=== PATIENT | male | born 1985 | race Caucasian/White ===

== ENCOUNTER 2017-12-14 16:55 | Emergency (ER) | payer OTHER ==
[2017-12-14 17:06] VITALS: RESP 18
--- NOTE | 2017-12-14 17:33 | ED ---
General Adult HPI - General Chief complaint: Recheck/Abnormal Lab/Rx Stated complaint: Rectal Pain Time Seen by Provider: 12/14/17 17:05 Source: patient, RN notes reviewed Mode of arrival: ambulatory Limitations: no limitations - History of Present Illness Initial comments: This is a 32-year-old male presents emergency Department complaining of a three- day history of perirectal pain. Patient states it is becoming progressively larger as well. Patient states it is. getting progressively worse and more tender in that area. Patient states he feels swelling around the anus. Patient denies any fevers patient denies any abdominal pain. Patient denies any rectal bleeding. Patient denies any anal sex. Patient states he has no history of hemorrhoids. - Related Data Previous Rx's Medication Instructions Recorded Ciprofloxacin HCl [Cipro] 500 mg PO Q12HR #20 tablet 12/14/17 Hydrocodone/Acetaminophen [[place] 1 each PO Q4HR PRN #20 tab 12/14/17 5-325] Ibuprofen [Motrin] 600 mg PO Q6HR PRN #20 tab 12/14/17 metroNIDAZOLE [Flagyl] 500 mg PO QID #40 tab 12/14/17 Allergies Allergy/AdvReac Type Severity Reaction Status Date / Time sulfamethoxazole Allergy Rash/Hives Verified 12/14/17 17:03 [From Bactrim] trimethoprim [From Bactrim] Allergy Rash/Hives Verified 12/14/17 17:03 venlafaxine HCl Allergy Unknown Verified 12/14/17 17:03 [From Effexor] Review of Systems ROS Statement: Those systems with pertinent positive or pertinent negative responses have been documented in the HPI. ROS Other: All systems not noted in ROS Statement are negative. Past Medical History Past Medical History: No Reported History Additional Past Medical History / Comment(s): PTSD, Agoraphobia with panic disorder, coping issues, heroin abuse History of Any Multi-Drug Resistant Organisms: MRSA Date of last positivie culture/infection: 2006 MDRO Source:: neck Past Surgical History: Appendectomy, Orthopedic Surgery Additional Past Surgical History / Comment(s): right foot Past Psychological History: Anxiety, Panic Disorder, PTSD Smoking Status: Current every day smoker Past Alcohol Use History: Rare Past Drug Use History: Heroin General Exam - General Exam Comments Initial Comments: GENERAL: Patient is well-developed and well-nourished. Patient is nontoxic and well- hydrated and is in moderate distress. ENT: Neck is soft and supple. No significant lymphadenopathy is noted. Oropharynx is clear. Moist mucous membranes. Neck has full range of motion without eliciting any pain. EYES: The sclera were anicteric and conjunctiva were pink and moist. Extraocular movements were intact and pupils were equal round and reactive to light. Eyelids were unremarkable. PULMONARY: Unlabored respirations. Good breath sounds bilaterally. No audible rales rhonchi or wheezing was noted. CARDIOVASCULAR: There is a regular rate and rhythm without any murmurs gallops or rubs. ABDOMEN: Soft and nontender with normal bowel sounds. No palpable organomegaly was noted. There is no palpable pulsatile mass. SKIN: Skin is clear with no lesions or rashes and otherwise unremarkable. RECTAL: On rectal exam patient has some swelling at the 7 o'clock position it appeared to be a small abscess. There was no area of drainage and there was no obvious area of fluctuance. NEUROLOGIC: Patient is alert and oriented x3. Cranial nerves II through XII are grossly intact. Motor and sensory are also intact. Normal speech, volume and content. Symmetrical smile. MUSCULOSKELETAL: Normal extremities with adequate strength and full range of motion. Limitations: no limitations Course Vital Signs 12/14/17 12/14/17 17:03 18:17 Temperature 98.2 F 97.9 F Pulse Rate 104 H 106 H Respiratory 18 18 Rate Blood Pressure 128/66 107/63 O2 Sat by Pulse 100 99 Oximetry Medical Decision Making - Medical Decision Making I spoke with Dr. Cardenas about the case Dr. Cardenas he wanted to see the patient in his office tomorrow 1:00 he also wants the patient be an antibiotic pain medicine and have him soak it 3 times a day until he follows up. Disposition Clinical Impression: Abscess of anal and rectal regions Disposition: HOME SELF-CARE Instructions: Abscess (ED) Prescriptions: Ciprofloxacin HCl [Cipro] 500 mg PO Q12HR #20 tablet Hydrocodone/Acetaminophen [[place] 5-325] 1 each PO Q4HR PRN #20 tab PRN Reason: Pain Ibuprofen [Motrin] 600 mg PO Q6HR PRN #20 tab PRN Reason: For pain metroNIDAZOLE [Flagyl] 500 mg PO QID #40 tab Referrals: Davy Cardenas MD [STAFF PHYSICIAN] - (Follow-up with Dr. Cardenas at 1 PM tomorrow) Time of Disposition: 17:41
[2017-12-14] MEDS ORDERED: MORPHINE SULFATE 4 MG/ML SYRINGE IM STA (17:44)
[2017-12-14] MEDS ORDERED: metroNIDAZOLE 500 MG TAB PO STA (17:45)
[2017-12-14] MEDS ORDERED: CIPROFLOXACIN HCL 500 MG TAB PO STA (17:45)
[2017-12-14] MEDS ORDERED: KETOROLAC 60 MG/2 ML VIAL IM STA (17:45)
[2017-12-14 18:18] VITALS: BP 107/63; PULSE 106; TEMP 97.9
== END 2017-12-14 18:17 ==
LOC: EC 16:55
DX: K61.2 Anorectal abscess (principal); F17.200 Nicotine dependence, unspecified, uncomplicated; Z86.14 Personal history of Methicillin resistant Staphylococcus aureus infection; Z88.1 Allergy status to other antibiotic agents; Z88.2 Allergy status to sulfonamides
CPT/HCPCS: 99284; 96372 ×2; J2270; J1885

== ENCOUNTER 2018-05-22 09:51 | Emergency (ER) | payer OTHER ==
[2018-05-22 10:36] VITALS: BP 119/57; PULSE 92; RESP 16; TEMP 97.9
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
--- NOTE | 2018-05-22 11:41 | CT ---
EXAMINATION TYPE: CT brain oneal guerra con DATE OF EXAM: 05/22/2018 COMPARISON: NONE HISTORY: pain CT DLP: 1369 mGycm Automated exposure control for dose reduction was used. TECHNIQUE: CT scan of the head and cervical spine are performed without contrast. FINDINGS: BRAIN: Central structures are midline. There is no evidence of hydrocephalus. No acute focal lesion, mass effect or midline shift is seen. I do not see evidence of intracranial blood. Visualized portions of the paranasal sinuses and mastoids are clear. The bony calvarium is intact. IMPRESSION: NORMAL CT SCAN OF THE BRAIN. CERVICAL SPINE: There is mild emphysematous changes within the lungs. Prevertebral soft tissues are normal. Vertebral body height and alignment are maintained. Atlantoaxial relationships are normal. No fractur es are seen. There is no significant degenerative change. No discal protrusions are seen. IMPRESSION: 1. NO ACUTE OSSEOUS LESION. 2. EMPHYSEMATOUS CHANGE WITHIN THE LUNGS.
== END 2018-05-22 12:25 | disposition home or self-care (01) ==
LOC: EC 09:51 → SUPCPDRO 09:51 → EC 12:25
DX: M54.2 Cervicalgia (principal); M54.9 Dorsalgia, unspecified; F17.200 Nicotine dependence, unspecified, uncomplicated; Z86.14 Personal history of Methicillin resistant Staphylococcus aureus infection; Z98.890 Other specified postprocedural states; Z88.1 Allergy status to other antibiotic agents; Z88.2 Allergy status to sulfonamides; Z88.8 Allergy status to other drugs, medicaments and biological substances; V43.52XA Car driver injured in collision with other type car in traffic accident, initial encounter
CPT/HCPCS: 70450; 72125; 99284

== ENCOUNTER 2018-05-24 12:47 | Emergency (ER) | payer OTHER ==
[2018-05-24 12:58] VITALS: RESP 18
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
[2018-05-24 13:59] VITALS: BP 116/64; PULSE 93; TEMP 98.5
== END 2018-05-24 13:57 | disposition home or self-care (01) ==
LOC: EC 12:47
DX: F41.9 Anxiety disorder, unspecified (principal); F17.200 Nicotine dependence, unspecified, uncomplicated; Z86.14 Personal history of Methicillin resistant Staphylococcus aureus infection; Z79.891 Long term (current) use of opiate analgesic; Z88.2 Allergy status to sulfonamides; Z88.8 Allergy status to other drugs, medicaments and biological substances
CPT/HCPCS: 93005; 99284

== ENCOUNTER 2021-10-30 18:26 | Emergency (ER) | payer BC, OTHER ==
[2021-10-30 19:44] VITALS: BP 112/71; PULSE 76; TEMP 97.4
--- NOTE | 2021-10-30 20:12 | XR ---
EXAMINATION TYPE: XR chest 1V portable DATE OF EXAM: 10/30/2021 COMPARISON: 07/29/2016 HISTORY: Shortness of breath and cough TECHNIQUE: Single frontal view of the chest is obtained. FINDINGS: There is no focal air space opacity, pleural effusion, or pneumothorax seen. The cardiac silhouette size is within normal limits. The osseous structures are intact. IMPRESSION: No acute process.
--- NOTE | 2021-10-30 21:56 | ED ---
URI HPI - General Chief Complaint: Upper Respiratory Infection Stated Complaint: covid symptoms Time Seen by Provider: 10/30/21 21:55 Source: patient, RN notes reviewed, old records reviewed Mode of arrival: ambulatory Limitations: no limitations - History of Present Illness Initial Comments: This is a 36-year-old male to the ER today for evaluation patient since a for evaluation of possible coronavirus has already had and been diagnosed had coronavirus with feels like this may be recurrence. Just feeling bodyaches pains otherwise not feeling well complaining of headache as well. No fevers, no trauma, no other complaints. Patient is no medical history currently takes no medications MD Complaint: cough -: days(s) Severity: mild Severity scale (1-10): 1 Quality: aching Consistency: intermittent Improves With: nothing Worsens With: nothing Context: sick contacts, recent travel Associated Symptoms: chills, myalgias, headache Treatments Prior to Arrival: none - Related Data Home Medications Medication Instructions Recorded Confirmed ALPRAZolam [Xanax] 1 mg PO DIRECTED PRN 05/24/18 05/24/18 Methadone Unknown Dose 95 mg PO DAILY 05/24/18 05/24/18 Allergies Allergy/AdvReac Type Severity Reaction Status Date / Time sulfamethoxazole Allergy Rash/Hives Verified 10/30/21 19:44 [From Bactrim] trimethoprim [From Bactrim] Allergy Rash/Hives Verified 10/30/21 19:44 venlafaxine HCl Allergy Unknown Verified 10/30/21 19:44 [From Effexor] Review of Systems ROS Statement: Those systems with pertinent positive or pertinent negative responses have been documented in the HPI. ROS Other: All systems not noted in ROS Statement are negative. Past Medical History Past Medical History: No Reported History Additional Past Medical History / Comment(s): PTSD, Agoraphobia with panic disorder, coping issues, heroin abuse History of Any Multi-Drug Resistant Organisms: MRSA Date of last positivie culture/infection: 2006 MDRO Source:: neck Past Surgical History: Appendectomy, Orthopedic Surgery Additional Past Surgical History / Comment(s): right foot Past Psychological History: Anxiety, Panic Disorder, PTSD, Schizophrenia Smoking Status: Never smoker Past Alcohol Use History: None Reported Past Drug Use History: Heroin, Methamphetamine General Exam Limitations: no limitations General appearance: alert, in no apparent distress Head exam: Present: atraumatic, normocephalic, normal inspection Eye exam: Present: normal appearance, PERRL, EOMI. Absent: scleral icterus, conjunctival injection, periorbital swelling ENT exam: Present: normal exam, mucous membranes moist Neck exam: Present: normal inspection. Absent: tenderness, meningismus, lymphadenopathy Respiratory exam: Present: normal lung sounds bilaterally. Absent: respiratory distress, wheezes, rales, rhonchi, stridor Cardiovascular Exam: Present: regular rate, normal rhythm, normal heart sounds. Absent: systolic murmur, diastolic murmur, rubs, gallop, clicks GI/Abdominal exam: Present: soft, normal bowel sounds. Absent: distended, tenderness, guarding, rebound, rigid Extremities exam: Present: normal inspection, full ROM, normal capillary refill. Absent: tenderness, pedal edema, joint swelling, calf tenderness Back exam: Present: normal inspection Neurological exam: Present: alert, oriented X3, CN II-XII intact Psychiatric exam: Present: normal affect, normal mood Skin exam: Present: warm, dry, intact, normal color. Absent: rash Course Vital Signs 10/30/21 10/30/21 19:39 22:10 Temperature 97.4 F L Pulse Rate 76 Respiratory 24 18 Rate Blood Pressure 112/71 O2 Sat by Pulse 100 Oximetry - Reevaluation(s) Reevaluation #1: 10/31/21 03:03 Medical record is reviewed Reevaluation #2: 10/31/21 03:03 Symptoms are improved including headache Reevaluation #3: 10/31/21 03:03 Patient informed of results and questions Is answered Medical Decision Making - Medical Decision Making 36 male for coronavirus testing. Patient is negative varus here in the ER and can be discharged home - Lab Data Lab Results 10/30/21 Range/Units 19:47 Coronavirus (PCR) Not Detected (Not Detectd) - Radiology Data Radiology results: report reviewed (Chest x-rays negative for acute disease), image reviewed Disposition Clinical Impression: Acute upper respiratory infection, Headache Disposition: HOME SELF-CARE Condition: Good Instructions (If sedation given, give patient instructions): Upper Respiratory Infection (ED), Acute Headache (ED) Is patient prescribed a controlled substance at d/c from ED?: No Referrals: Garcia Hummel MD [Primary Care Provider] - 1-2 days
[2021-10-30] MEDS ORDERED: ETODOLAC 400 MG TAB PO STA (21:59)
[2021-10-30] MEDS ORDERED: diphenhydrAMINE 50 MG CAP PO STA (21:59)
[2021-10-30] MEDS ORDERED: PROCHLORPERAZINE 5 MG TAB PO STA (21:59)
[2021-10-30] MEDS ORDERED: IBUPROFEN 600 MG STARTER PACK 4 TAB BTL PO STA (21:59)
[2021-10-30] MEDS ORDERED: ONDANSETRON 4 MG ODT STARTER PACK 2 TAB BTL PO STA (21:59)
[2021-10-30] MEDS ORDERED: dexAMETHasone 2 MG TAB PO STA (21:59)
[2021-10-30 22:26] VITALS: RESP 18
== END 2021-10-30 22:27 | disposition home or self-care (01) ==
LOC: EC 18:26
DX: J06.9 Acute upper respiratory infection, unspecified (principal); R51.9 Headache, unspecified; Z20.822 Contact with and (suspected) exposure to COVID-19; Z88.2 Allergy status to sulfonamides; Z88.1 Allergy status to other antibiotic agents; Z90.49 Acquired absence of other specified parts of digestive tract; F41.9 Anxiety disorder, unspecified; F43.12 Post-traumatic stress disorder, chronic; F25.9 Schizoaffective disorder, unspecified
CPT/HCPCS: 99284; 87635; 71045; S0183; J8540; S0119